=== PATIENT | female | born 1945 | race Caucasian/White ===

== ENCOUNTER 2018-12-02 16:55 | Emergency (ER) | payer OTHER ==
[~2018-12-02] VITALS: Ht 160 cm; Wt 61.7 kg
[2018-12-02 16:55] VITALS: BP_SYST 158
--- NOTE | 2018-12-02 17:00 | NUR ---
BROUGHT BACK TO BED #6 AND TRIAGED. DAUGHTER AT BEDSIDE, REPORT GIVEN TO LUZ ELENA. DAUGHTER STATES THAT PT LIVES WITH ADOPTIVE DAUGHTER AND OTHER FAMILY TO WHICH SHE DOES NOT SPEAK TO. PT WAS SEEN AT [facility], AND ALSO SEEN AT [facility].
--- NOTE | 2018-12-02 17:35 | NUR ---
DAUGHTER STATES THAT SHE WANTS AN MRI TODAY, EXPLAINED TO DAUGHTER THAT WE HAVE A CAT SCAN AT THIS TIME BUT DO NOT HAVE AN MRI. DAUGHTER STATES THAT SHE HAS ALREADY BEEN TO TWO DIFFERENT HOSPITALS AND THEY DID NOT DO AN MRI AND THAT IS WHAT SHE WANTS DONE. DAUGHTER STATES THAT PT WOULD LIKE TO LEAVE. EXPLAINED THAT SHE SHOULD WAIT TO BE SEEN BY DOCTOR.
--- NOTE | 2018-12-02 17:37 | NUR ---
Pt left without being seen
== END 2018-12-02 17:37 | disposition left against medical advice (07) ==
LOC: SED 16:55
DX: M54.6 Pain in thoracic spine (principal); Z53.21 Procedure and treatment not carried out due to patient leaving prior to being seen by health care provider